=== PATIENT | female | born 1960 | race Caucasian/White ===

== ENCOUNTER 2020-02-01 06:24 | Day surgery (SDC) | payer OTHER, SELFPAY ==
[2020-01-31 13:27] VITALS: BMI 23.6
--- NOTE | 2020-02-01 06:36 | W.PM.OPSUD ---
Surgery/Procedure H&P Update DATE OF PROCEDURE: February 01, 2020 DATE H&P PERFORMED: 01/31/20 H&P UPDATE INFORMATION: I have reviewed H&P completed within last 30 days, I have examined patient prior to procedure and No changes to prior documentation PREOP DIAGNOSIS: left ring trigger finger PRIMARY INDICATION FOR PROCEDURE: as above PLANNED PROCEDURE: Operation Date: 02/01/20 07:55 Proposed Procedures p left ring finger trigger digit release/ 11407/M65.342(Left) - Tung Williamson DO
--- NOTE | 2020-02-01 06:36 | PM.OP ---
Operative Report Date of procedure: February 01, 2020 Pre-op Diagnosis: left ring trigger finger Post-op diagnosis: same Post-op Findings: see below Procedure Done: release left ring finger A1 karen Pathology: none sent Surgeon: Tung Williamson Anesthesia: MAC and Local Estimated blood loss (mL): 2 Tourniquet time (min): 10 (250 mmHg pressure) Complications: no apparent complications Findings: thickening of tenosynovium over flexor tendons to the left ring finger Condition: stable Disposition: same day Brief History: 59-year-old white female with persistent triggering occasional locking of her left ring finger. She's failed conservative treatment to include oral anti-inflammatory medications and tendon sheath injection. Risks of surgery include aren't limited to failure to relieve all symptoms, possible recurrence, nerve/blood vessel/tendon injury, stiffness of the finger postoperatively. Other potential complications can be adverse reaction to anesthetic Medications blood clots, heart attack, stroke risk up to including . All questions answered patient agreeable to proceed with surgery. Procedure: 1.5 g cefuroxime Patient identified. Surgical site signed. Surgical permit signed. Patient 1.5 g of zinacef intravenously for surgical prophylaxis. She was taken to the operating room. She is placed supine on the operating room table. She received intravenous sedation. Time out was performed. Using alcohol prep a digital block of the left long finger was performed using 10 mL of a one-to-one mixture 1% lidocaine and half percent Marcaine. Tourniquet was placed but the upper aspect of the left upper extremity. The patient was sterilely prepped and draped usual fashion. The operative limb was exsanguinated using Esmarch bandage and the tourniquet inflated to 250 mm Hg pressure. A 2 cm transverse incision overlying the ring finger flexor tendons in the area of the A1 karen was made with a skin knife. The incision was deepened using tenotomy scissors exposing underlying flexor tendons and tendon sheath. Retractors were placed on the radial and ulnar aspects of the flexor tendons to the left long finger. Using tenotomy scissors the A1 karen was released. Using a hemostat verified that the release was complete. Using a hemostat we remove the flexor tendons from the wound and inspected them. No tendon pathology was noted other than thickening of the overlying tenosynovium. The wound was irrigated with Betadine-containing saline solution and antibiotic containing saline solution. Skin was closed with 4-0 nylon sutures. The patient was aroused from sedation and asked to flex and extend her finger he/she was able to do so without triggering of the left long finger. Antibiotic ointment was applied to the incision line followed by sterile dressings. The tourniquet was deflated during application of dressings. The patient was transferred back to outpatient surgery. All counts are correct. She tolerated surgery well
[2020-02-01 06:55] VITALS: BP 120/63; PULSE 74; RESP 18; TEMP 36.3; O2SAT 97
[2020-02-01] MEDS: sodium chloride 0.9% 1,000 ML 30 ML IV (07:05)
[2020-02-01] MEDS: ketorolac 30 mg/mL INJ IVP (07:18)
--- NOTE | 2020-02-01 07:57 | P.ANESASSM_ITS ---
Pre-Anesthetic Assessment Pre-Anesthetic Assessment: Height/Weight: Height 1.6 m Weight 60.328 kg Temp Pulse Resp BP Pulse Ox 97.4 F L 74 18 120/63 97 02/01/20 06:55 02/01/20 06:55 02/01/20 06:55 02/01/20 06:55 02/01/20 06:55 Preop Diagnosis: left ring trigger finger Proposed Procedure: Operation Date: 02/01/20 07:55 Proposed Procedures p left ring finger trigger digit release/ [id number]/M65.342(Left) - Tung Williamson DO Was Beta Penelope taken within 24 hours: N/A Last intake: Intake Last Liquid Date 01/31/20 Last Liquid Time 23:30 Last Solid Date 01/31/20 Last Solid Time 18:00 Social: Social History: Alcohol and Tobacco Packs per day: Drinks beer 4- 6/day Exam: Pre-Anes Outpt Exam: alert, oriented x 3, clear to auscultation bilaterally and regular rate & rhythm Airway: Submandibular: WNL Cervical ROM: WNL MP: 2 Dentition: Partials Additional comments: Profound dental disease History/ROS: No significant complaints Pulmonary: Pulmonary: COPD and Cough CV/HEM: CV/HEM: None reported : : None reported Hepatic: Hepatic: None reported GI: GI: GERD Metabolic: Metabolic: None reported Musc/skel: Musc/skel: Neuropsych: Neuropsych: None reported Anesthetic Plan: ASA status: 3 Anesthesia: MAC Meds/Allergies Current Medications: Current Medications Generic Name Dose Route Start Last Admin Trade Name Freq PRN Reason Stop Dose Admin Sodium Chloride 1,000 mls @ 30 ml s/hr 02/01/20 07:00 02/01/20 07:05 Sodium Chloride 0.9% IV 02/02/20 06:59 30 mls/hr .Q24H AYSE Administration PFSH Anesthesia PFSH: Medical History Trigger finger, left ring finger Social History Smoking and tobacco status: current every day smoker cigarettes Packs smoked per day: 0.5 Alcohol intake: never Data Anesthesia Cardiac Studies: No Data to Display
[2020-02-01] MEDS: cefUROXime 1,500 MG in sodium chloride 0.9% (plus) 50 ML 100 MG IV (08:00)
[2020-02-01] MEDS: lidocaine 1% INJ 20 mL SUBCUT (08:10)
[2020-02-01] MEDS: neomycin-poly-bacitracin oint 28 gm 1 APPLIC TOPICAL (08:30)
[2020-02-01 08:48] VITALS: BP 143/99; PULSE 73; RESP 18; TEMP 36.3; O2SAT 97
[2020-02-01 08:55] VITALS: BP 137/83; PULSE 68; RESP 18; TEMP 36.3; O2SAT 97
== END 2020-02-01 09:09 | disposition home or self-care (01) ==
PROVIDERS: PCP Family Medicine; Visit Provider Orthopaedic Surgery
PROC: (CPT 26055; principal; 2020-02-01 07:55)
DX: M65.342 Trigger finger, left ring finger (principal); J44.9 Chronic obstructive pulmonary disease, unspecified; K21.9 Gastro-esophageal reflux disease without esophagitis; M06.9 Rheumatoid arthritis, unspecified; F17.210 Nicotine dependence, cigarettes, uncomplicated
CPT/HCPCS: 26055; 12345; 96365; 96374; J0131; J0697; J1580; J1885; J2001; J2704; J3010; J3490; J7030

== ENCOUNTER 2025-02-11 11:27 | Outpatient (CLI) | payer MEDICARE, SELFPAY ==
--- NOTE | 2025-02-11 11:34 | MM_ITS ---
WS: [id number] BILATERAL 3D TOMOSYNTHESIS DIGITAL SCREENING MAMMOGRAPHY WITH CAD CLINICAL INFORMATION: SCREENING HISTORY: Screening mammogram. No current complaints. COMPARISON: 2016 TECHNIQUE: Bilateral CC and MLO views. FINDINGS: The breasts are composed of heterogeneous fibroglandular density tissue, which can limit the detection of small underlying mass lesions. Punctate and lucent centered calcifications. RIGHT breast biopsy clip. Vascular calcifications Small irregular asymmetric density outer RIGHT breast best seen on the cc view. Recommend RIGHT breast diagnostic mammography and ultrasound if persistent. MM/MM [facility] tomosynthesis [id number] IMPRESSION: DENSITY: The breasts are heterogeneously dense, which may obscure small masses. BI-RADS: 0 - Incomplete: Need additional imaging evaluation FOLLOW UP: Need Additional Imaging
== END 2025-02-11 11:28 | disposition home or self-care (01) ==
LOC: RAD 11:30
PROVIDERS: PCP Family Medicine; Visit Provider Family Medicine
DX: Z12.31 Encounter for screening mammogram for malignant neoplasm of breast (principal); R92.333 Mammographic heterogeneous density, bilateral breasts; R92.1 Mammographic calcification found on diagnostic imaging of breast; N63.10 Unspecified lump in the right breast, unspecified quadrant
CPT/HCPCS: 77063; 77067

== ENCOUNTER 2025-03-14 08:06 | Outpatient (CLI) | payer MEDICARE, SELFPAY ==
--- NOTE | 2025-03-14 08:34 | MM_ITS ---
WS: [id number] RIGHT 3D TOMOSYNTHESIS DIGITAL MAMMOGRAPHY WITH CAD CLINICAL INFORMATION: ABNORMAL MAMMO HISTORY: Additional views TECHNIQUE: 3 views of the right breast were obtained. FINDINGS: The right breast is composed of heterogeneous fibroglandular density tissue, which can limit the detection of small underlying mass lesions. Punctate and lucent centered calcifications. Previously described asymmetric density outer RIGHT breast compresses out on the spot compression views. Recommend return to annual screening mammography MM/MM diag RT tomosynthesis [id number] IMPRESSION: DENSITY: The breasts are heterogeneously dense, which may obscure small masses. BI-RADS: 2 - Benign FOLLOW UP: 1 Year Follow-up Recommend return to annual screening mammography.
== END 2025-03-14 08:07 | disposition home or self-care (01) ==
LOC: RAD 08:10
PROVIDERS: PCP Family Medicine; Visit Provider Family Medicine
DX: R92.8 Other abnormal and inconclusive findings on diagnostic imaging of breast (principal); R92.333 Mammographic heterogeneous density, bilateral breasts
CPT/HCPCS: 77061; G0279